=== PATIENT | female | born 1990 | race Caucasian/White ===

== ENCOUNTER 2018-01-26 08:05 | Emergency (ER) | payer MEDICAID, OTHER ==
[2018-01-26 08:30] VITALS: BP 117/73
--- NOTE | 2018-01-26 08:37 | UC ---
Eye Complaint HPI - HPI Summary HPI Summary: Patient presents to urgent care with 24 hours of progressive right eye redness, drainage. Patient states she woke this morning with yellow crust in her eye closed. Patient has any vision changes. Patient with some mild clear discharge. Patient states it does itch a little bit. Patient without any other complaints. No fevers or chills. No ear pain. No sinus congestion. Patient is a schoolteacher with sick contacts with scarlett. Patient does not wear contact lenses. Patient is not . Patient without any other complaints. - History of Current Complaint Chief Complaint: UCEye Stated Complaint: RT EYE CONCERN Time Seen by Provider: 01/26/18 08:32 Hx Obtained From: Patient Hx Last Menstrual Period: "COUPLE WEEKS AGO" ?: No Onset/Duration: Gradual Onset Severity Initially: Mild Severity Currently: None Pain Intensity: 0 Pain Scale Used: 0-10 Numeric - Allergies/Home Medications Allergies/Adverse Reactions: Allergies Allergy/AdvReac Type Severity Reaction Status Date / Time Penicillins Allergy Rash Verified 01/26/18 08:23 Home Medications: Home Medications Etonogestrel [Nexplanon] 68 mg IMPLANT ONCE 01/26/18 [History Confirmed 01/26/18 ] PMH/Surg Hx/FS Hx/Imm Hx Previously Healthy: Yes - Surgical History Surgical History: Yes Surgery Procedure, Year, and Place: tonsills. GASTRIC BYPASS SX--. choly - Family History Known Family History: Positive: Cardiac Disease, Diabetes - Social History Occupation: Employed Full-time - business school [employer] Alcohol Use: Occasionally Alcohol Amount: ON WEEKENDS Substance Use Type: None Smoking Status (MU): Never Smoked Tobacco - Immunization History Most Recent Influenza Vaccination: NONE Most Recent Tetanus Shot: UNKNOWN Most Recent Pneumonia Vaccination: NEVER Review of Systems All Other Systems Reviewed And Are Negative: Yes Constitutional: Positive: Negative Eyes: Positive: Drainage, Eye Redness Physical Exam - Summary Physical Exam Summary: Vital Signs Reviewed: Yes A+Ox3, no distress Eyes: Right eye: inflammed erythema conjunctive, injected cornea NOLA, EOM intact and full Dry yellow discharge medial canthus ENT: Hearing grossly normal TM x 2 clear, turbinates wnl mmoist, uvula midline , no exudate, no erythema Neck: Positive: Supple Respiratory: Positive: No respiratory distress, No accessory muscle use + CTA throughout no w/r Cardiovascular: RRR nl s1, s2 no m/r CBT <2 sec abd soft + BS nt/nd no guarding, no distension Musculoskeletal Exam: BRADLEY x 4 without difficulty Strength Intact, ROM Intact Neurological: Positive: Alert, + sensation throughout Psychological: Positive: Normal Response To Family Skin: Positive: no rash, no ecchymosis Triage Information Reviewed: Yes Vital Signs: Initial Vital Signs Temp 98.4 F 01/26/18 08:25 Pulse 83 01/26/18 08:25 Resp 15 01/26/18 08:25 BP 117/73 01/26/18 08:25 Pulse Ox 98 01/26/18 08:25 Eye Complaint Course/Dx - Course Course Of Treatment: Pt presents with 24 progressive right ear erythema, drainage, itching. Pt does not wear contact lenses. Exam c/w conjunctivitis. Will Rx antibiotics. secretion precaution. return precaution. pt comfortable and in agreement with plan. work note - Differential Dx/Diagnosis Provider Diagnosis: Conjunctivitis Discharge - Sign-Out/Discharge Documenting (check all that apply): Patient Departure All imaging exams completed and their final reports reviewed: No Studies - Discharge Plan Condition: Stable Disposition: HOME Prescriptions: Polymyx/Trimethoprim OPTH* [Polytrim OPHTH*] 2 drop BOTH EYES Q6HR #1 btl Patient Education Materials: Conjunctivitis (ED) Forms: *Work Release Referrals: Micki Jerez NP [Primary Care Provider] - Additional Instructions: - Apply eye drops to your affected as prescribed (2 drops, 4 times a day) for 7 days - Thorough, frequent handwashing is important - Use a warm, wet washcloth to clean secretions from your eye lid. Use a new washcloth with each encounter so you don't recontaminate your eye - After you have been on antibiotics for 2 days, change your pillowcase - If you develop facial or eyelid swelling- you should be re-evaluated - Billing Disposition and Condition Condition: STABLE Disposition: Home
== END 2018-01-26 08:54 | disposition home or self-care (01) ==
LOC: UCCORT 08:05
DX: H10.9 Unspecified conjunctivitis (principal); Z88.0 Allergy status to penicillin
CPT/HCPCS: 99212; G0463

== ENCOUNTER 2018-06-08 08:02 | Day surgery (SDC) | payer SELFPAY ==
--- NOTE | 2018-06-08 08:32 | ED ---
Abdominal Pain/Female - HPI Summary HPI Summary: Patient is a 28-year-old female who presents emergency department for right lower quadrant abdominal pain 2 days. Patient states she's had some mild diarrhea this week and some lower abdominal discomfort and notes that pain localized to the right lower quadrant today. Pain is described as a dull constant ache that intermittently is sharp in nature. Associated symptoms of decreased appetite. No vomiting, fever, hematuria, dysuria, vaginal discharge or irregular bleeding. Patient's denies past medical history. She has an Implanon for control. Symptoms are moderate in severity. No current modifying factors. - History of Current Complaint Chief Complaint: EDAbdPain Stated Complaint: "LOWER R ABD PAIN" PER PT Time Seen by Provider: 06/08/18 08:14 Hx Obtained From: Patient Hx Last Menstrual Period: "COUPLE WEEKS AGO" Pain Intensity: 5 Allergies/Adverse Reactions: Allergies Allergy/AdvReac Type Severity Reaction Status Date / Time Penicillins Allergy Rash Verified 06/08/18 08:08 PMH/Surg Hx/FS Hx/Imm Hx Previously Healthy: Yes Endocrine/Hematology History: Denies: Hx Diabetes, Hx Thyroid Disease Respiratory History: Denies: Hx Asthma GI History: Reports: Hx Hiatal Hernia - MILD-NO PROBLEMS Sensory History: Reports: Hx Contacts or Glasses - GLASSES Denies: Hx Hearing Aid Opthamlomology History: Reports: Hx Contacts or Glasses - GLASSES - Surgical History Surgery Procedure, Year, and Place: tonsills. GASTRIC BYPASS SX--. choly Hx Anesthesia Reactions: No Infectious Disease History: No Infectious Disease History: Denies: Traveled Outside the [place] in Last 30 Days - Family History Known Family History: Positive: Cardiac Disease, Diabetes - Social History Alcohol Use: Occasionally Alcohol Amount: ON WEEKENDS Substance Use Type: Reports: None Smoking Status (MU): Never Smoked Tobacco Review of Systems Constitutional: Negative Negative: Fever, Chills Cardiovascular: Negative Respiratory: Negative Positive: Abdominal Pain, Diarrhea. Negative: Vomiting, Nausea Genitourinary: Negative Negative: dysuria, discharge, frequency, flank pain, hematuria Neurological: Negative All Other Systems Reviewed And Are Negative: Yes Physical Exam Triage Information Reviewed: Yes Vital Signs On Initial Exam: Initial Vitals Temp Pulse Resp BP Pulse Ox 98.4 F 98 14 110/77 99 06/08/18 08:06 06/08/18 08:06 06/08/18 08:06 06/08/18 08:06 06/08/18 08:06 Vital Signs Reviewed: Yes Appearance: Positive: Well-Appearing - Pt. sitting up in bed in NAD. Skin: Positive: Warm, Dry Head/Face: Positive: Normal Head/Face Inspection Eyes: Positive: Normal, EOMI, NOLA Neck: Positive: Supple Respiratory/Lung Sounds: Positive: Clear to Auscultation, Breath Sounds Present Cardiovascular: Positive: Normal, RRR Abdomen Description: Positive: Other: - Abd is soft with diffuse lower tenderness with majority of pain to RLQ. No rebound tenderness or guarding. Negative: CVA Tenderness (R), CVA Tenderness (L) Musculoskeletal: Positive: Normal, Strength/ROM Intact Neurological: Positive: Normal, CN Intact II-III Psychiatric: Positive: Affect/Mood Appropriate Diagnostics - Vital Signs Vital Signs Temp Pulse Resp BP Pulse Ox 06/08/18 08:06 98.4 F 98 14 110/77 99 - Laboratory Result Diagrams: 06/08/18 08:52 06/08/18 08:52 Lab Statement: Any lab studies that have been ordered have been reviewed, and results considered in the medical decision making process. Abdominal Pain Fem Course/Dx - Course Course Of Treatment: Patient presenting with worsening right lower quadrant abdominal pain. She is afebrile with stable vital signs. Given worsening pain on exam Will obtain labs and CT scan to evaluate for appendicitis. Patient's pain is 4 out of 10 and she is comfortable without pain medications at this time. Labs are unremarkable other than mild elevation in CRP. CT abd./pelvis per radiology: IMPRESSION: DILATED APPENDIX WITH PERIAPPENDICEAL INFLAMMATORY CHANGE CONSISTENT WITH ACUTE. APPENDICITIS. THERE IS NO LOCULATED FLUID COLLECTION TO SUGGEST ABSCESS. call center consultant surgery, Dr. Ho, examined pt. in ED and plans to take her to the ER. - Diagnoses Differential Diagnosis: Positive: Appendicitis, Constipation, Ectopic , Pelvic Inflammatory Disease, , Urinary Tract Infection Provider Diagnoses: Appendicitis Discharge - Sign-Out/Discharge Documenting (check all that apply): Patient Departure Patient Received Moderate/Deep Sedation with Procedure: No - Discharge Plan Condition: Stable Disposition: ADMITTED TO [facility] Prescriptions: Oxycodone HCl/Acetaminophen [Percocet 5-325 mg Tablet] 1 each PO Q4HR #12 tablet MDD 4 Referrals: Micki Jerez NP [Primary Care Provider] - - Billing Disposition and Condition Condition: STABLE Disposition: Admitted to [facility]
[2018-06-08 09:00] LABS: ABS Basophils 0 10^3/ul (0-0.2); ABS Eosinophils 0 10^3/ul (0-0.6); ABS Lymphocytes 1.2 10^3/ul (1.0-4.8); ABS Monocytes 1.1 10^3/ul (0-0.8); ABS Neutrophils 8.2 10^3/ul (1.5-7.7); ABS Nucleated RBC 0 10^3/ul; Eosinophil % 0.2 %; Hematocrit 37 % (33-41); Hemoglobin 12.3 g/dL (12.0-16.0); Lymphocyte % 11.1 %; Mean Corpuscular HGB Conc 34 g/dL (31-36); Mean Corpuscular Hemoglobin 28 pg (27-31); Mean Corpuscular Volume 83 fL (80-97); Mean Platelet Volume 8.6 fL (7.4-10.4); Nucleated Red Blood Cells % 0; Platelet Count 299 10^3/uL (150-450); Red Cell Distribution Width 15 % (10.5-15); White Blood Count 10.6 10^3/uL (3.5-10.8)
[2018-06-08 09:22] LABS: Urine Appearance Clear; Urine Color Yellow; Urine Ketones Negative (Negative); Urine Protein 1+(30 mg/dL) (Negative); Urine Urobilinogen Negative (Negative)
[2018-06-08 09:23] LABS: Urine Bilirubin Negative (Negative); Urine Blood Negative (Negative); Urine Glucose Negative (Negative); Urine Nitrite Negative (Negative); Urine Specific Gravity 1.035 (1.010-1.030)
[2018-06-08 09:25] LABS: ALT 14 U/L (7-52); AST 15 U/L (13-39); Albumin/Globulin Ratio 1.7 (1-3); Alkaline Phosphatase 78 U/L (34-104); Anion Gap 7 mmol/L (2-11); BUN/Creatinine Ratio 17.2 (8-20); Blood Urea Nitrogen 10 mg/dL (6-24); C Reactive Protein 30.02 mg/L (<8.01); CO2 Carbon Dioxide 27 mmol/L (22-32); Chloride 106 mmol/L (101-111); EGFR African American 148.7 (>60); EGFR Non-African American 122.9 (>60); Globulin 2.4 g/dL (2-4); Glucose 96 mg/dL (70-100); HCG Pregnancy < 0.60 mIU/mL; Potassium 3.8 mmol/L (3.5-5.0); Sodium 140 mmol/L (135-145); Total Protein 6.4 g/dL (6.4-8.9)
[2018-06-08 09:39] LABS: Urine Red Blood Cell Absent (Absent); Urine White Blood Cell Absent (Absent)
[2018-06-08 09:40] LABS: Urine Bacteria 1+ (Absent); Urine Squamous Epithelial Cell Present (Absent)
[2018-06-08] MEDS ORDERED: Iohexol 300* (CONTRAST) 10 ML SDV IV ONE (10:59)
[2018-06-08] MEDS ORDERED: Bupivacaine 0.25% W/EPI* 10 ML SDV ONE (12:09)
[2018-06-08] MEDS ORDERED: Ketorolac INJ* 30 MG/ML 1 ML VIAL ONE (12:18)
[2018-06-08] MEDS ORDERED: Propofol* 10 MG/ML 20 ML BTL ONE (12:18)
[2018-06-08] MEDS ORDERED: Rocuronium* 10 MG/ML VIAL ONE (12:18)
[2018-06-08] MEDS ORDERED: Dexamethasone IV* 4 MG/ML 1 ML (4 MG) ONE (12:18)
[2018-06-08] MEDS ORDERED: Succinylcholine* 20 MG/ML 10 ML VIAL ONE (12:18)
[2018-06-08] MEDS ORDERED: Lidocaine 2% PF * 5 ML VIAL ONE (12:19)
[2018-06-08] MEDS ORDERED: ceFOXitin 2 GM IVPREMIX* 2 GM/50 ML BAG ONE (12:23)
[2018-06-08] MEDS ORDERED: Midazolam* 1 MG/ML 2 ML VIAL (2 MG) ONE (12:38)
[2018-06-08] MEDS ORDERED: fentaNYL* 50 MCG/ML 2 ML VIAL (100 MCG VIAL) ONE ×2 (12:38→13:38)
[2018-06-08] MEDS ORDERED: Phenylephrine 40 MCG/ML SYRINGE ONE (13:16)
[2018-06-08] MEDS ORDERED: fentaNYL* 50 MCG/ML 2 ML VIAL (100 MCG VIAL) IV PRN (13:39)
[2018-06-08] MEDS ORDERED: Naloxone* 0.4 MG/ML 1 ML VIAL IV PRN (13:39)
[2018-06-08] MEDS ORDERED: DiMENhydriNATE IV* 50 MG/ML VIAL IV PUSH PRN (13:39)
[2018-06-08] MEDS ORDERED: HYDROmorphone INJ1* 1 MG/ML SYRINGE IV PRN (13:39)
[2018-06-08] MEDS ORDERED: HYDROmorphone INJ1* 1 MG/ML SYRINGE ONE (14:02)
[2018-06-08] MEDS ORDERED: oxyCODONE/Acetamin 5/325 MG* TAB ONE (14:22)
[2018-06-08 15:51] VITALS: BP 112/68
--- NOTE | 2018-06-08 20:50 | HP ---
CC: Dr. Ho; Micki Jerez NP HISTORY AND PHYSICAL: DATE OF ADMISSION: 06/08/18 CHIEF COMPLAINT: Abdominal pain. HISTORY OF PRESENT ILLNESS: Ms. Flores is a 28-year-old female with about 24 hours of right lower q uadrant pain that started more or less in the right lower quadrant, has increased in intensity. She has been anorexic for couple of days. She has been having little bit of diarrhea. No fever, no chill s, no nausea or vomiting, no antecedent illness, no injury or trauma. PAST MEDICAL HISTORY: Significant for laparoscopic Sandra-en-Y gastric bypass in 2013 with cholecystec erik at the same time. She had a tonsillectomy as a child. She has also had kidney stones, but did n ot require surgery for them. MEDICATIONS: She is on no regular medication. ALLERGIES: She has a vague allergy to PENICILLIN, she thought it may be was a rash when she was a ch ild, but there is not any real definite about it. FAMILY HISTORY: Noncontributory. No bleeding tendencies or anesthesia reactions. 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 She is living with her parents. She is nonsmoker, social drinker, does not use any drugs or illicit substances. REVIEW OF SYSTEMS: Negative for any chest pain, heart pain, angina pain, or any cardiac disease. No pulmonary disease, emphysema, or bronchitis. No hepatobiliary disease. She did have the gallbladde r out in the past. She had the Sandra-en-Y in the past, has lost about 100 pounds since then and is fe eling well from that. She has not had any trouble from it. She has no ulcer disease, Crohn's diseas e or colitis or the like, has no gynecologic history. She gets regular exams through her primary and she is up-to-date on those. She has history of kidney stones, but never required surgery for them. There is no neuromuscular or psych issues. PHYSICAL EXAMINATION GENERAL: She is a well-developed, well-nourished female consistent with stated age. VITAL SIGNS: Show heart rate 96, blood pressure 123/78, respirations 16 and unlabored, O2 saturation s 99%, temperature is 98.3. She is 5 feet 5 inches, 180 pounds with a BMI of 31. HEENT: Head and neck are unremarkable. Eyes are clear. She does not appear acute ill. She is well perfused. NECK: Supple without any gross adenopathy. HEART: Regular. I do not appreciate any abnormal sounds. Breathing is easy and unlabored with good aeration bilaterally. ABDOMEN: Soft. There are some well healed scars consistent with the previous laparoscopic surgery. She is tender in the right lower quadrant with focal rebound tenderness. There are no hernias. The re is mild referred rebound to the right lower quadrant from the left. There are no palpable hernias or masses. EXTREMITIES: Well perfused without edema. SKIN: Warm and well perfused. She is not diaphoretic. She is not jaundiced. DIAGNOSTIC STUDIES/LAB DATA: Laboratory studies show normal electrolytes. HCG is negative. C-reac tive protein is elevated. White blood count is just under the upper limits of normal at 10.8. Urina lysis is negative. CT scan looks like early appendicitis. IMPRESSION AND PLAN: Reasonably healthy 28-year-old female with evidence of early acute appendicitis . I discussed this with her and we talked about the pros and cons of proceeding with laparoscopic appen dectomy. She understands the surgery, the rationale, the risks and expected recovery and would like to proceed in the fashion outlined, so we will plan laparoscopic appendectomy this afternoon as the s luz permits. [id number]/[facility] #: [id number]
--- NOTE | 2018-06-08 21:33 | OP ---
CC: Dr. Ho; Micki Jerez NP OPERATIVE REPORT: DATE OF OPERATION: 06/08/18 DATE OF : 88 SURGEON: Delvin Ho MD ASSEMBLY OPERATOR: None. ANESTHESIOLOGIST: Dr. Stauffer. ANESTHESIA: General anesthetic, local infiltration. PRE-OP DIAGNOSIS: Appendicitis. POST-OP DIAGNOSIS: Appendicitis with adhesions. OPERATIVE PROCEDURE: Laparoscopic appendectomy and lysis of adhesions. DESCRIPTION OF PROCEDURE: The patient was supine on the operating room table. After adequate general anesthetic, compression stockings, Jose Francisco-Hugger warmer, and intravenous antibiotics, the abdomen was prepped with antiseptic, draped in a sterile fashion. Local infiltrative anesthesia was administered . A small umbilical incision was created. Blunt port cannula was inserted and pneumoperitoneum was created. The scope was inserted and inspection revealed no evidence of underlying visceral injury. There was 1 band adhesion of the small bowel up to the anterior abdominal wall in the supraumbilical region, this looked like it would be at risk for torsion or some type of internal hernia. Ultimately , this was lysed sharply with scissors to prevent that eventuality. Additional cannulae, 5 mm left lower quadrant and left mid abdomen, were placed through small stab wo unds under direct vision. The appendix was acute with early suppurative changes on the distal half, the proximal half was not inflamed at all. The appendix was tented upward a single firing of an Endo TRACEY stapler, 60 mm chen cartridge was utilized to divide the base of the appendix and the mesoappendix , which was then replaced in a retrieval bag and brought out through the umbilical site. Hemostasis was good. There was no evidence of perforation or purulence and pneumoperitoneum was allowed to esca pe. The umbilical fascia was closed with an Endo Close device using 0 Vicryl, this was done before r elease of the pneumoperitoneum. After adequate closure of the umbilical fascia, the skin was closed with 5-0 Vicryl, followed by Steri-Strips. She tolerated the procedure well, was awakened, extubated and brought to Recovery in good condition. There were no complications. No drains. PATHOLOGICAL SPECIMEN: Appendix. COUNTS: Sponge and instrument counts correct. ESTIMATED BLOOD LOSS: 10 mL. [id number]/[facility] #: [id number]
== END 2018-06-08 13:19 | disposition home or self-care (01) ==
LOC: OR 08:02 → ED 12:15 → OR 13:19
PROVIDERS: ATTEND Surgery
DX: K35.80 Unspecified acute appendicitis (principal); K66.0 Peritoneal adhesions (postprocedural) (postinfection); R10.31 Right lower quadrant pain; R19.7 Diarrhea, unspecified; Z98.84 Bariatric surgery status
CPT/HCPCS: 36415; 74177; 80053; 81003; 81015; 84702; 85025; 86140; 87086; 88304; 99284; A9270-GY; J0330; J0694; J1100; J1170; J1885; J2250; J2704; J3010; Q9967

== ENCOUNTER 2023-08-04 18:01 | Inpatient (IN) ==
[2023-08-04] MEDS ORDERED: Lidocaine 1% VIAL 10 MG/ML 30 ML VIAL INJ PRN (18:48)
[2023-08-04 19:35] LABS: Urine Benzodiazepine Screen None Detected (None Detect); Urine Cannabinoids Screen None Detected (None Detect); Urine Opiates Screen None Detected (None Detect)
[2023-08-04] MEDS: Dinoprostone 10 MG VAG.SUPP VAGINAL ONE (20:47)
[2023-08-05] MEDS: Buffered Lidocaine 1% SYRIN 1 ml INTRADERM ONE (07:54)
[2023-08-05] MEDS: Lactated Ringers 1000 ml BAG 1,000 ML IV ONE (07:55)
[2023-08-05 08:04] LABS: ABS Basophils 0.1 10^3/uL (0.0-0.1); ABS Eosinophils 0.1 10^3/uL (0.0-0.5); ABS Lymphocytes 1.8 10^3/uL (1.0-4.8); ABS Monocytes 0.7 10^3/uL (0.0-0.9); ABS Neutrophils 5.6 10^3/uL (1.5-7.6); Eosinophil % 0.8 %; Hemoglobin 12.8 g/dL (11.5-14.3); Mean Corpuscular Hemoglobin 31.5 pg (27-33); Mean Corpuscular Hgb Conc 34.6 g/dL (31-36); Mean Corpuscular Volume 91.2 fL (80-97); Mean Platelet Volume 8.7 fL (7.5-11.2); Platelet Count 224 10^3/uL (150-450); Red Blood Count 4.05 10^6/uL (3.63-4.92); Red Cell Distribution Width 13.8 % (12-17); White Blood Count 8.2 10^3/uL (3.8-11.8)
[2023-08-05] MEDS: miSOPROStol 100 mcg TAB PO ONE ×4 (10:30→23:43)
[2023-08-05] MEDS: Lactated Ringers 1000 ml BAG 1,000 ML IV SCH (14:27)
[2023-08-06] MEDS: Ondansetron 4 mg VIAL 2 MG/ML 2 ml VIAL IV PRN (01:24)
[2023-08-06] MEDS: Prochlorperazine 5 mg/ml 2 ml VIAL (10 mg) IV PRN (03:01)
[2023-08-06] MEDS ORDERED: Phenylephrine 40 mcg/mL 10mL (400mcg) SYRINGE IV PUSH PRN (07:27)
[2023-08-06] MEDS: Phenylephrine 40 mcg/mL 10mL (400mcg) SYRINGE IV PUSH PRN (07:53)
[2023-08-06] MEDS: OBEPIDURAL (200 ML) 200 ML EPIDURAL ONE (08:30)
[2023-08-06 09:02] LABS: Urine Appearance Clear; Urine Bilirubin Negative (Negative); Urine Blood Negative (Negative); Urine Color Light-Yellow; Urine Glucose Negative (Negative); Urine Ketones 3+ (Negative); Urine Nitrite Negative (Negative); Urine Protein Negative (Negative); Urine Specific Gravity 1.014 (1.002-1.030); Urine Urobilinogen Negative (Negative); Urine pH 5.5 (5.0-8.0)
[2023-08-06] MEDS: Oxytocin in LR 20,000 MILLI.UNIT/1,000 ML BAG IV SCH ×2 (10:39→15:00)
[2023-08-06] MEDS: Sodium Citrate/Citric Acid LIQ 15 ML UDC PO PRN (12:40)
[2023-08-06] MEDS: ceFOXitin 2 GM IVPREMIX 2 GM/50 ML BAG IVPB ONE (12:40)
[2023-08-06] MEDS ORDERED: Lidocaine 2% w/ EPI 1:200,000 MPF 20 ML SDV VIAL ONE (12:44)
[2023-08-06] MEDS ORDERED: Ondansetron 4 mg VIAL 2 MG/ML 2 ml VIAL ONE (12:45)
[2023-08-06] MEDS ORDERED: Oxytocin 10 UNITS/ML 1 ML VIAL ONE ×2 (12:45→13:54)
[2023-08-06] MEDS ORDERED: Phenylephrine 40 mcg/mL 10mL (400mcg) SYRINGE ONE (12:46)
[2023-08-06] MEDS ORDERED: Dexamethasone IV 4 MG/ML VIAL 1 ml VIAL ONE (13:11)
[2023-08-06] MEDS ORDERED: Propofol 10 MG/ML 20 ML BTL ONE (13:14)
[2023-08-06] MEDS ORDERED: Morphine PF AMP (0.5MG/ML) 5 MG/10 ML AMP ONE (13:19)
[2023-08-06] MEDS ORDERED: fentaNYL 100 mcg/2 ml 50 MCG/ML VIAL ONE (13:19)
[2023-08-06] MEDS ORDERED: Tranexamic Acid 1,000 MG/10 ML SDV ONE (13:20)
[2023-08-06] MEDS ORDERED: Acetaminophen IV 1 GM/100ML 1,000 MG/100 ML BAG IV ONE (13:21)
[2023-08-06] MEDS ORDERED: Ondansetron 4 mg VIAL 2 MG/ML 2 ml VIAL IV PRN (13:45)
[2023-08-06] MEDS ORDERED: Metoclopramide 5 MG/ML VIAL (10 mg) IV PRN (13:45)
[2023-08-06] MEDS ORDERED: Acetaminophen IV 1 GM/100ML 1,000 MG/100 ML BAG IV PRN (13:45)
[2023-08-06] MEDS ORDERED: Naloxone 0.4 mg VIAL 0.4 mg/ml 1 ml VIAL IV PUSH PRN (13:45)
[2023-08-06] MEDS ORDERED: Dibucaine 1% OINT 28.35 GM TUBE PR PRN (14:43)
[2023-08-06] MEDS ORDERED: Witch Hazel PAD JAR TOPICAL PRN (14:43)
[2023-08-06] MEDS ORDERED: Glycerin ADULT 2.4 gm SUPP PR PRN (14:43)
[2023-08-06] MEDS ORDERED: Lactated Ringers 1000 ml BAG 1,000 ML IV SCH (15:00)
[2023-08-06] MEDS: Lactated Ringers 1000 ml BAG 1,000 ML IV ONE (17:29)
[2023-08-06] MEDS: Lidocaine 1.5% EPI 1:200,000 30 ML SDV ONE (17:29)
[2023-08-06] MEDS: OBEPIDURAL (200 ML) 200 ML EPIDURAL SCH (17:29)
[2023-08-06] MEDS: Phenylephrine 40 mcg/mL 10mL (400mcg) SYRINGE ONE (17:29)
[2023-08-06] MEDS: Lactated Ringers 1000 ml BAG 1,000 ML IV SCH (17:29)
[2023-08-06] MEDS: Tranexamic Acid 1 GM/100ML BAG 0 MG/0 ML BAG IV ONE (17:30)
[2023-08-07 08:16] LABS: ABS Basophils 0.1 10^3/uL (0.0-0.1); ABS Lymphocytes 1.2 10^3/uL (1.0-4.8); ABS Monocytes 1.1 10^3/uL (0.0-0.9); ABS Neutrophils 12.6 10^3/uL (1.5-7.6); Eosinophil % 0.1 %; Hematocrit 32.1 % (35-45); Hemoglobin 11.1 g/dL (11.5-14.3); Lymphocyte % 8.2 %; Mean Corpuscular Hemoglobin 31.8 pg (27-33); Mean Corpuscular Hgb Conc 34.7 g/dL (31-36); Mean Corpuscular Volume 91.8 fL (80-97); Mean Platelet Volume 8.7 fL (7.5-11.2); Platelet Count 190 10^3/uL (150-450); Red Cell Distribution Width 13.6 % (12-17); White Blood Count 15.1 10^3/uL (3.8-11.8)
[2023-08-09 08:04] VITALS: BP 116/67
== END 2023-08-09 11:58 | disposition home or self-care (01) | DRG 540 ==
LOC: MCHOBOUT 18:01 → MCHOB 20:38
PROVIDERS: ATTEND Obstetrics & Gynecology